=== PATIENT | female | born 1990 | race African-American/Black ===

== ENCOUNTER 2020-03-31 19:19 | Emergency (ER) | payer MEDICAID, SELFPAY ==
--- NOTE | ~2020-03-31 | CT_ITS ---
EXAMINATION: CT brain wo con EXAM DATE: 03/31/2020 20:43 INDICATION: Headache. TECHNIQUE: Spiral CT of the head was performed without contrast. Axial, coronal and sagittal images were reviewed. The dose-length product (DLP) for this examination was 605.33 mGy-cm. The exposure w as tailored according to patient size, and iterative reconstruction (ASIR) was used as additional dos e reduction technique. There is no prior study for comparison. FINDINGS: There is no acute intraparenchymal hemorrhage. No evidence of intraparenchymal brain mass lesion. No evidence of acute infarction. There is no mass effect or midline shift. The ventricles are normal in size. There are no extra-axial collections. There are no acute calvarial fractures. T he orbits are unremarkable. Soft tissue is unremarkable. The visualized sinuses and mastoid air damon ls are well aerated. IMPRESSION: 1. Normal head CT examination. Reviewed, dictated and finalized at location A.
--- NOTE | ~2020-03-31 | XR_ITS ---
EXAMINATION: XR chest 2V EXAM DATE: 03/31/2020 20:51 INDICATION: Upper chest pain and shortness of breath. TECHNIQUE: Frontal and lateral projections of the chest obtained and reviewed. There is no prior raoul dy for comparison. FINDINGS: The lungs are clear. There are no pleural effusions. The cardiomediastinal silhouette is within normal limits. There is no pneumothorax suspected. The bones and soft tissues are unremarkab le. IMPRESSION: Normal chest x-ray exam. Reviewed, dictated and finalized at location A. IMPRESSION: Normal chest x-ray exam.
[2020-03-31 19:22] VITALS: BP 112/51; PULSE 60; RESP 18; TEMP 37.1; O2SAT 98
--- NOTE | 2020-03-31 20:29 | ECG_ITS ---
Measurements Intervals [place] Rate: 62 P: 51 MA: 170 QRS: 11 QRSD: 81 T: 34 QT: 398 QTc: 407 Interpretive Statements SINUS RHYTHM EARLY PRECORDIAL R/S TRANSITION MINIMAL Q WAVES- HIGH LATERAL LEADS BORDERLINE ECG Electronically Signed On 04-01-2020 7:31:05 CDT by Jose Stanford D.O.
--- NOTE | 2020-03-31 20:31 | ED.HA ---
HPI - Headache General Chief Complaint: Headache Stated Complaint: im having migraines again Time Seen by Provider: 03/31/20 20:00 Source: patient Mode of arrival: ambulatory Limitations: no limitations History of Present Illness HPI Narrative: This is a 29 year old female that presents to the ER for migraine headaches. Reports she has had them for years. Also reports a pre-syncopal episode today. Reports she was outside and hot. Reports she started feeling lightheaded and almost passed out. Reports she has been having chest pain for the last month that is there constantly. Also reports intermittent shortness of breath. Denies fever, vomiting, numbness or weakness. Related Data Allergies Allergy/AdvReac Type Severity Reaction Status Date / Time No Known Allergies Allergy Verified 03/31/20 19:25 Review of Systems Review of Systems: Narrative: CONSTITUTIONAL: Denies fever CARDIOVASCULAR: Reports chest pain RESPIRATORY: Reports dyspnea. Denies cough GASTROINTESTINAL: Denies vomiting NEUROLOGIC: Reports headache. Denies numbness, or weakness. All systems reviewed & are unremarkable except as noted in HPI and below PMFSH Past Medical History Medical History (Updated 03/31/20 @ 23:17 by Cande Mackay PA-C) History of migraine Social History Social History (Updated 03/31/20 @ 20:36 by Cande Mackay PA-C) Substance use: never Exam Narrative: Exam Narrative: GENERAL: Well-appearing, well-nourished, and in no acute distress. HEAD: Normocephalic, atraumatic. EYES: PERRLA and EOMI. ENT: Nares clear, no rhinorrhea or epistaxis. Mucous membranes moist. Oropharynx without tonsillar hypertrophy exudate or other lesions. Bilateral TMs pearly page non-bulging NECK: Supple. No adenopathy or masses. Normal ROM CHEST: Clear to auscultation. No respiratory distress. No wheezes rales or rhonchi HEART: Regular rate and rhythm. No murmur heard. Normal peripheral pulses. EXTREMITIES: Normal range of motion. No edema. SKIN: Warm, dry, no rash. NEURO: No focal deficits. Alert and oriented x3. Cranial nerves II through XII grossly intact PSYCH: Normal mood and affect PELVIC: Normal external genitalia. Mild amount of white cervical discharge present Course Vital Signs Vital signs: Vital Signs Temperature 98.8 F 07/24/20 19:22 Pulse Rate 60 03/31/20 19:22 Respiratory Rate 18 03/31/20 19:22 Blood Pressure 112/51 L 03/31/20 19:22 Pulse Oximetry 98 03/31/20 19:22 Temperature 98.8 F 03/31/20 19:22 Pulse Rate 61 03/31/20 23:14 Respiratory Rate 18 03/31/20 23:14 Blood Pressure 91/67 L 03/31/20 23:14 Pulse Oximetry 99 03/31/20 23:14 MDM - Headache MDM Narrative Medical decision making narrative: Patient presents to the emergency department for migraine. Also reported a presyncopal episode and chest pain over the last month. Patient's vitals are normal. She is neurologically intact. CBC and metabolic panel without concerning findings. Chest x-ray without acute changes. EKG without concerning changes. Troponin is negative. PERC criteria negative. Patient is not orthostatic. CT scan of the brain is without acute findings. Patient reports relief with IV fluids, Tylenol and Toradol. Patient reported at end of visit that she has been having abnormal vaginal discharge. UA is normal. Trichomonas is negative. Chlamydia, gonorrhea and genital culture sent. Patient would like to be presumptively treated for chlamydia and gonorrhea. Reports history of BV. Will be treated for BV as well. Patient is stable and felt appropriate for further outpatient evaluation. Is to follow up with primary doctor. Was given warnings to return to the ER Lab Data Attestation: I reviewed the patient's lab results. Result diagrams: 03/31/20 21:12 03/31/20 21:12 Labs: Lab Results 03/31/20 03/31/20 03/31/20 Range/Units 21:12 21:12 21:12 WBC 9.2 (4.5-10.0) K/mm3 RBC 5.00 (4.2-5.4
[2020-03-31] MEDS: KETOROLAC 30 MG/ML VIAL (*BKC) IV PUSH (21:14)
[2020-03-31 21:16] VITALS: BP 96/60; PULSE 81
[2020-03-31 21:17] VITALS: BP 91/64; PULSE 69
[2020-03-31 21:18] VITALS: BP 103/73; PULSE 82
[2020-03-31] MEDS: SODIUM CHLORIDE 0.9% IV 1,000 ML 999 ML IV CONT (21:21)
[2020-03-31 21:30] LABS: Basophils Absolute Auto 0.1 K/mm3 (0.0-0.1); Basophils Percent Auto 0.8 % (0.2-1.2); Eosinophils Absolute Auto 0.1 K/mm3 (0-0.3); Eosinophils Percent Auto 0.8 % (0-4.4); Hematocrit 42.7 % (37.0-47.0); Hemoglobin 14.4 g/dL (12.0-15.0); Immature Granulocyte Absolute 0.04 K/mm3 (0.00-0.031); Immature Granulocyte Percent A 0.4 % (0-0.5); Lymphocytes Absolute Auto 2.35 K/mm3 (0.9-3.2); Lymphocytes Percent Auto 25.5 % (18.3-44.2); Mean Corpuscular HGB Conc 33.7 g/dl (32-36); Mean Corpuscular Hemoglobin 28.8 pg (26-34); Mean Corpuscular Volume 85.4 fl (80-100); Mean Platelet Volume 11.4 fl (7.4-10.4); Monocytes Absolute Auto 0.6 K/mm3 (0.1-0.6); Neutrophils Absolute Auto 6.2 K/mm3 (1.3-6.7); Neutrophils Percent Auto 66.5 % (45.5-73.1); Platelet Count Result 243 k/mm3 (150-375); Red Cell Distribution Width 13.6 % (11.5-14.5); White Blood Count 9.2 K/mm3 (4.5-10.0)
[2020-03-31 21:33] LABS: Add Urine Microscopic? NO; Appearance Urine Clear (Clear); Bilirubin Urine Negative (Negative); Blood Urine Negative (Negative); Color Urine Yellow (Yellow); Glucose Urine UA Negative (Negative); Ketones Urine Negative (Negative); Leukocyte Esterase Ur Negative LEU/UL (Negative); Nitrate Urine Negative (Negative); Protein Urine Negative (Negative); Specific Grav Ur 1.021 (1.001-1.035); Urobilinogen Urine Negative mg/dL (<2.0)
[2020-03-31 21:42] LABS: Anion Gap 11.2 mmol/L (7-16); Blood Urea Nitrogen 14 mg/dL (7-17); Calcium 9.4 mg/dL (8.4-10.2); Carbon Dioxide 27 mmol/L (22-30); Chloride 102 mmol/L (98-107); Estimated Glomerular Filt Rate > 60; Glucose 93 mg/dL (65-105); Potassium 4.2 mmol/L (3.4-5.0); Sodium 136 mmol/L (137-145)
[2020-03-31 21:54] LABS: Troponin I < 0.012 ng/mL (0.000-0.034)
[2020-03-31] MEDS: AZITHROMYCIN 250 MG TABLET 1000 MG PO (23:05)
[2020-03-31] MEDS: cefTRIAXone 250 MG VIAL IM (23:05)
[2020-03-31 23:14] VITALS: BP 91/67; PULSE 61; RESP 18; O2SAT 99
[2020-03-31 23:44] VITALS: BP 101/77; PULSE 76; RESP 20; TEMP 36.6; O2SAT 99
== END 2020-03-31 23:46 | disposition home or self-care (01) ==
PROVIDERS: Physician Assistant; Emergency Provider Emergency Medicine
DX: G43.009 Migraine without aura, not intractable, without status migrainosus (principal); N76.0 Acute vaginitis; R07.9 Chest pain, unspecified
CPT/HCPCS: 36415; 70450; 71046; 80048; 81003; 81025; 84484; 85025; 87070; 87077; 87491; 87591; 87808; 93005; 96361; 96372; 96374; 96375; 99284; A9270; J0131; J0696; J1885; J7030

== ENCOUNTER 2021-09-28 17:56 | Emergency (ER) | payer MEDICAID, SELFPAY ==
--- NOTE | ~2021-09-28 | CT_ITS ---
EXAMINATION: CT abdomen pelvis w con INDICATION: Abdominal pain TECHNIQUE: Computed tomographic images of the abdomen and pelvis were obtained after the administrati on of 100 cc of Omnipaque 350 intravenous contrast. The dose-length product (DLP) was 591.92 mGy-cm. Automated exposure control and iterative reconstruction technique were employed. COMPARISON: None available FINDINGS: The lung bases are clear. The heart size is normal. The liver, spleen, pancreas, and adrena l glands are normal. The gallbladder is contracted but normal in appearance. The kidneys are unremark able. No pathologically enlarged abdominal or pelvic lymph nodes are identified. There is no free int raperitoneal gas or evidence of bowel obstruction. An IUD is present in the uterus in expected positi on. IMPRESSION: 1. No CT correlate for the patient's symptoms. Reviewed, dictated and finalized at location F. [facility]
[2021-09-28 17:59] VITALS: BP 116/67; PULSE 90; RESP 18; TEMP 36.9; O2SAT 100
[2021-09-28] MEDS: SODIUM CHLORIDE 0.9% IV 1,000 ML 999 ML IV CONT (19:37)
[2021-09-28] MEDS: KETOROLAC 30 MG/ML VIAL (*BKC) IV PUSH (19:38)
[2021-09-28] MEDS: diphenhydrAMINE HCl INJ 50 MG/ML VIAL IV PUSH (19:38)
[2021-09-28 19:47] LABS: Basophils Absolute Auto 0.1 K/mm3 (0.0-0.1); Eosinophils Absolute Auto 0.1 K/mm3 (0-0.3); Eosinophils Percent Auto 1.4 % (0-4.4); Hemoglobin 13.6 g/dL (12.0-15.0); Immature Granulocyte Absolute 0.03 K/mm3 (0.00-0.031); Immature Granulocyte Percent A 0.4 % (0-0.5); Lymphocytes Absolute Auto 2.67 K/mm3 (0.9-3.2); Lymphocytes Percent Auto 31.9 % (18.3-44.2); Mean Corpuscular HGB Conc 32.4 g/dl (32-36); Mean Corpuscular Hemoglobin 29.1 pg (26-34); Mean Corpuscular Volume 89.7 fl (80-100); Mean Platelet Volume 10.9 fl (7.4-10.4); Monocytes Absolute Auto 0.6 K/mm3 (0.1-0.6); Monocytes Percent Auto 6.7 % (2.6-8.5); Neutrophils Absolute Auto 4.9 K/mm3 (1.3-6.7); Neutrophils Percent Auto 58.6 % (45.5-73.1); Platelet Count Result 226 k/mm3 (150-375); Red Blood Count 4.68 M/mm3 (4.2-5.4); Red Cell Distribution Width 12.8 % (11.5-14.5); White Blood Count 8.4 K/mm3 (4.5-10.0)
[2021-09-28 19:59] LABS: Add Urine Microscopic? YES; Appearance Urine Clear (Clear); Bacteria Urine Trace /hpf; Bilirubin Urine Negative (Negative); Blood Urine Negative (Negative); Color Urine Yellow (Yellow); Glucose Urine UA Negative (Negative); Ketones Urine Negative (Negative); Leukocyte Esterase Ur 3+ LEU/UL (Negative); Mucus Urine Rare /lpf; Nitrate Urine Negative (Negative); Protein Urine Negative (Negative); Specific Grav Ur 1.024 (1.001-1.035); Squamous Epithelial Cell Urine Many /hpf (Few); WBC Urine 16-20 /hpf
[2021-09-28 20:00] LABS: Alanine Aminotransferase 24 U/L (4-35); Albumin Level 4.5 g/dL (3.5-5.1); Alkaline Phosphatase 97 U/L (38-126); Anion Gap 8 mmol/L (8-16); Aspartate Amino Transferase 29 U/L (14-36); Bilirubin,Total 0.2 mg/dL (0.2-1.3); Blood Urea Nitrogen 12 mg/dL (7-17); Calcium 9.3 mg/dL (8.4-10.2); Carbon Dioxide 29 mmol/L (22-30); Chloride 105 mmol/L (98-107); Estimated CRCL calculation 82 ml/min; Estimated Glomerular Filt Rate > 60; Glucose 107 mg/dL (65-110); Potassium 3.8 mmol/L (3.4-5.0); Sodium 142 mmol/L (137-145)
[2021-09-28 20:02] LABS: Lipase 652 U/L (23-300); Magnesium 2.3 mg/dL (1.6-2.3)
[2021-09-28 20:21] LABS: Lactic Acid Reflex 0.8 mmol/L (0.7-2.1)
--- NOTE | 2021-09-28 20:37 | ED.GENADULT ---
HPI - General Adult General Chief complaint: Skin/Abscess/Foreign Body Stated complaint: migraine 4days Time Seen by Provider: 09/28/21 19:10 History of Present Illness HPI narrative: Patient is a 31-year-old female presents the emergency department with chief complaint of body aches nausea vomiting headache generalized rash. The patient states that for several days she has been unable to keep anything down and just now started to be able to tolerate p.o. intake and leave her house. The patient states that she had no diarrhea but reports that her abdomen has been hurting diffusely the patient also reports that she has had a headache and reports that she is also had an itching rash over her face. Related Data Allergies Allergy/AdvReac Type Severity Reaction Status Date / Time No Known Allergies Allergy Verified 09/28/21 18:00 Review of Systems Review of Systems: A 10 system review of systems was completed on the patient and is negative except for what is stated in the HPI. Nursing and ancillary documentation was reviewed. PMFSH Past Medical History Medical History History of migraine Social History Social History Substance use: never Exam Narrative: GENERAL: Well-appearing, well-nourished, and in no acute distress. HEAD: Normocephalic, atraumatic. EYES: PERRLA and EOMI. ENT: Nares clear, no rhinorrhea or epistaxis. Mucous membranes moist. NECK: Supple. CHEST: Clear to auscultation. No respiratory distress. HEART: Regular rate and rhythm. No murmur heard. Normal peripheral pulses. ABDOMEN: Soft, nontender, nondistended, normal active bowel sounds. EXTREMITIES: Normal range of motion. No edema. SKIN: Warm, dry, no rash. NEURO: No focal deficits. Alert and oriented x3. PSYCH: Normal mood and affect. Course Vital Signs Vital signs: Vital Signs Temperature 36.9 C 09/28/21 17:59 Pulse Rate 90 09/28/21 17:59 Respiratory Rate 18 09/28/21 17:59 Blood Pressure 116/67 09/28/21 17:59 Pulse Oximetry 100 09/28/21 17:59 Temperature 36.9 C 09/28/21 17:59 Pulse Rate 90 09/28/21 17:59 Respiratory Rate 18 09/28/21 17:59 Blood Pressure 116/67 09/28/21 17:59 Pulse Oximetry 100 09/28/21 17:59 Medical Decision Making Vital Signs Vital Signs: Vital Signs Temperature 36.9 C 09/28/21 17:59 Pulse Rate 90 09/28/21 17:59 Respiratory Rate 18 09/28/21 17:59 Blood Pressure 116/67 09/28/21 17:59 Pulse Oximetry 100 09/28/21 17:59 Temperature 36.9 C 09/28/21 17:59 Pulse Rate 90 09/28/21 17:59 Respiratory Rate 18 09/28/21 17:59 Blood Pressure 116/67 09/28/21 17:59 Pulse Oximetry 100 09/28/21 17:59 Lab Data Result diagrams: 09/28/21 19:41 09/28/21 19:41 Labs: Lab Results 09/28/21 09/28/21 09/28/21 Range/Units 19:40 19:41 19:41 WBC 8.4 (4.5-10.0) K/mm3 RBC 4.68 (4.2-5.4) M/mm3 Hgb 13.6 (12.0-15.0) g/dL Hct 42.0 (37.0-47.0) % MCV 89.7 (80-100) fl MCH 29.1 (26-34) pg MCHC 32.4 (32-36) g/dl RDW 12.8 (11.5-14.5) % Plt Count 226 (150-375) k/mm3 MPV 10.9 H (7.4-10.4) fl Immature Gran % (Auto) 0.4 (0-0.5) % Neut % (Auto) 58.6 (45.5-73.1) % Lymph % (Auto) 31.9 (18.3-44.2) % [place] % (Auto) 6.7 (2.6-8.5) % Eos % (Auto) 1.4 (0-4.4) % Baso % (Auto) 1.0 (0.2-1.2) % Lymph # (Auto) 2.67 (0.9-3.2) K/mm3 [place] # (Auto) 0.6 (0.1-0.6) K/mm3 Eos # (Auto) 0.1 (0-0.3) K/mm3 Baso # (Auto) 0.1 (0.0-0.1) K/mm3 Abs Immat Gran (auto) 0.03 (0.00-0.031) K/mm3 Absolute Neuts (auto) 4.9 (1.3-6.7) K/mm3 Absolute Nucleated RBC 0.0 (0.0-0.012) K/mm3 Nucleated RBC % 0.0 (0.0-0.2) % Sodium 142 (137-145) mmol/L Potassium 3.8 (3.4-5.0) mmol/L Chloride 105 (98-107) mmol/L Carbon Dioxide 29
[2021-09-30 12:53] LABS: SARS-CoV-2 RNA PCR Negative
== END 2021-09-28 22:29 | disposition home or self-care (01) ==
PROVIDERS: Emergency Provider Emergency Medicine
DX: N39.0 Urinary tract infection, site not specified (principal); R51.9 Headache, unspecified; R74.8 Abnormal levels of other serum enzymes; Z20.822 Contact with and (suspected) exposure to COVID-19
CPT/HCPCS: 36415; 74177; 80053; 81001; 81025; 83605; 83690; 83735; 85025; 87086; 87088; 96361; 96374; 96375; 99284; C9803; J1200; J1885; J7030; Q9967; U0003; U0005